=== PATIENT | male | born 1995 | race Caucasian/White ===

== ENCOUNTER 2021-07-04 21:18 | Emergency (ER) | payer OTHER ==
[~2021-07-04 21:18] MED LIST: PERCOCET 5-3251 EACH PO
[2021-07-05] MEDS ORDERED: VALACYCLOVIR1000 MG PO (00:26)
[2021-07-05] MEDS ORDERED: BACTROBAN NASAL1 GM (00:26)
== END 2021-07-05 01:00 | disposition home or self-care (01) ==
LOC: FER 21:18
DX: L01.03 Bullous impetigo (principal); B00.9 Herpesviral infection, unspecified; F17.210 Nicotine dependence, cigarettes, uncomplicated
CPT/HCPCS: 99283